=== PATIENT | male | born 1960 | race Caucasian/White ===

== ENCOUNTER → 2017-03-11 | Outpatient (CLI) | payer BC ==
[~2017-03-11] MED LIST: ALB18R INH; ALBU8.5H IH; AMOX-559 PO; AZIT-1 PO; BENZ200C15 PO; FLUT16SP19 NS; FLUT1AER INH; GUAI120L3 PO; HYDR-385 PO; HYDR12.561 PO; LEVO750T44 PO; LORA-802 PO; MELO-205 PO; OXYGENHOME INH; PRED-1 PO; PRED20TA6 PO; SIMV-54 PO; TIO18R INH; UMEC1DIS INH
[2017-03-11 09:20] LABS: LDL CHOLESTEROL 156 mg/dl
== END ==
LOC: LAB 08:10
PROVIDERS: ATTEND Nurse Practitioner Primary Care
DX: I10 Essential (primary) hypertension (principal); E78.00 Pure hypercholesterolemia, unspecified; R73.03 Prediabetes
CPT/HCPCS: 36415; 82040; 82247; 82310; 82374; 82435; 82465; 82565; 82947; 83036; 83718; 84075; 84132; 84155; 84295; 84450; 84460; 84478; 84520

== ENCOUNTER → 2017-06-11 | Outpatient (CLI) | payer BC | LOC: LAB 08:55 | PROVIDERS: ATTEND Nurse Practitioner Primary Care | DX: E78.00 Pure hypercholesterolemia, unspecified (principal) | CPT/HCPCS: 36415; 82465; 83718; 84478 ==

== ENCOUNTER → 2018-03-14 | Outpatient (CLI) | payer BC ==
[2018-03-14 09:29] LABS: LDL CHOLESTEROL 112 mg/dl
== END ==
LOC: LAB 08:54
PROVIDERS: ATTEND Nurse Practitioner Primary Care
DX: Z12.5 Encounter for screening for malignant neoplasm of prostate (principal); R73.03 Prediabetes; I10 Essential (primary) hypertension; E78.00 Pure hypercholesterolemia, unspecified
CPT/HCPCS: 36415; 82040; 82247; 82310; 82374; 82435; 82465; 82565; 82947; 83036; 83718; 84075; 84132; 84153; 84155; 84295; 84450; 84460; 84478; 84520

== ENCOUNTER → 2018-04-08 | Outpatient (CLI) | payer BC ==
[~2018-04-08] MED LIST changes: +HYDR-2966 PO
== END ==
LOC: AUD 08:30
PROVIDERS: ATTEND Nurse Practitioner Primary Care
DX: H93.13 Tinnitus, bilateral (principal)
CPT/HCPCS: 92557; 92570